=== PATIENT | female | born 1965 | race Caucasian/White ===

== ENCOUNTER 2017-08-15 06:03 | Emergency (ER) | payer BC, OTHER ==
[~2017-08-15 06:03] MED LIST: LORA-474 PO; REGL5TAB PO; ROSU10 PO
[2017-08-15 06:08] VITALS: BP 139/76; PULSE 86; RESP 16; TEMP 97.8; O2SAT 99
--- NOTE | 2017-08-15 06:35 | PD ---
HPI Chief Complaint: Abdominal Pain Time Seen by Provider: 06:28 Travel History International Travel<30 days: No Contact w/Intl Traveler<30days: No Traveled to known affect area: No History of Present Illness HPI Patient is a 52-year-old female who presents to emergency room after being seen and evaluated at [facility] emergency room for abdominal pain and bloating. Reports that over the past 2 months, she has been having increased abdominal pain and bloating. Patient reports that her clothes are too tight for her, reports that she has had multiple workups for this and no one can tell her why she is so bloated. Patient reports that she had a CT of her abdomen and pelvis as well as lab work obtained today at the [place] emergency room, reports that she was told to come to [facility] ER for a gastrointestinal consult. Patient denies any fevers or chills, denies any nausea or vomiting. Patient reports that she is menopausal and has been menopausal since the age of 45. Patient here for GI consult as well as for a "scope." [facility] Past Medical History Anxiety: Yes Depression: Yes Cancer: Yes (cervical) High Cholesterol: Yes Diminished Hearing: No Immunizations Current: Yes ?: Not Menopausal: Yes : 4 Para: 3 Ovarian Cysts: Yes (1 removed) Past Surgical History Section: Yes Other Surgery: Yes (leep surgery x4 cervical ca) Social History Alcohol Use: Yes (occ) Tobacco Use: Yes (E-CIG) Substance Use: No Allergies-Medications (Allergen,Severity, Reaction): Coded Allergies: penicillin G (Unverified Allergy, Mild, 08/15/17) Reported Meds & Prescriptions Reported Meds & Active Scripts Active Ativan (Lorazepam) 1 Mg Tab 1 Mg PO BID PRN Reglan (Metoclopramide HCl) 5 Mg Tab 5 Mg PO QID Crestor (Rosuvastatin Calcium) 10 Mg Tab 10 Mg PO DAILY Pt wants brand name Review of Systems General / Constitutional: No: Fever Eyes: No: Visual changes HENT: No: Headaches Cardiovascular: No: Chest Pain or Discomfort Respiratory: No: Shortness of Breath Gastrointestinal: Positive: Abdominal Pain Genitourinary: No: Dysuria Musculoskeletal: No: Pain Skin: No Rash Neurologic: No: Weakness Psychiatric: No: Depression Endocrine: No: Polydipsia Hematologic/Lymphatic: No: Easy Bruising Physical Exam Narrative GENERAL: No acute distress, nontoxic SKIN: Focused skin assessment warm/dry. HEAD: Atraumatic. Normocephalic. EYES: Pupils equal and round. No scleral icterus. No injection or drainage. ENT: No nasal bleeding or discharge. Mucous membranes pink and moist. NECK: Trachea midline. No JVD. CARDIOVASCULAR: Regular rate and rhythm. No murmur appreciated. RESPIRATORY: No accessory muscle use. Clear to auscultation. Breath sounds equal bilaterally. GASTROINTESTINAL: Abdomen soft, non-tender, nondistended. Hepatic and splenic margins not palpable. MUSCULOSKELETAL: No obvious deformities. No clubbing. No cyanosis. No edema. NEUROLOGICAL: Awake and alert. No obvious cranial nerve deficits. Motor grossly within normal limits. Normal speech. PSYCHIATRIC: Appropriate mood and affect; insight and judgment normal. Data Data Last Documented VS Vital Signs Date Time Temp Pulse Resp B/P (MAP) Pulse Ox O2 Delivery O2 Flow Rate FiO2 08/15/17 06:08 97.8 86 16 139/76 (97) 99 Room Air Orders Orders Mandatory Outpatient Referral (08/15/17 06:29) [facility] Medical Decision Making Medical Screen Exam Complete: Yes Emergency Medical Condition: Yes Medical Record Reviewed: Yes Interpretation(s) Vital Signs Date Time Temp Pulse Resp B/P (MAP) Pulse Ox O2 Delivery O2 Flow Rate FiO2 08/15/17 06:08 97.8 86 16 139/76 (97) 99 Room Air Differential Diagnosis Differential includes gastritis, gastroenteritis, liver cirrhosis, electrolyte abnormality Narrative Course 52-year-old female who returns to emergency room for a GI consult as well as for "scope." Patient was seen in the [place] ER earlier today and had a full workup including ct of her abdomen and pelvis. She was told to come to [facility] in [facility] for a gi consult and possible "scope." ER records including lab work and CT report was reviewed in detail. Vital Signs Date Time Temp Pulse Resp B/P (MAP) Pulse Ox O2 Delivery O2 Flow Rate FiO2 08/15/17 06:08 97.8 86 16 139/76 (97) 99 Room Air cbc from 08/15/17: WBC 10.3, hemoglobin 14.4, hematocrit 41.2, platelets 284 bmp from 08/14/17: Sodium 141, chloride 103, potassium 3.5, BUN 9, creatinine 0.70, glucose 127, AST 20, ALT 29, alkaline phosphatase 129, lipase 178 INR 0.9 UA: Rare bacteria, negative leuk esterase, negative nitrites CT of the abdomen and pelvis without contrast shows no acute abnormality demonstrated. I discussed with patient that she will need to see GI as outpatient and she does not suffer any emergent condition to have GI see her in the ER immediately. I discussed in detail that she will need to be seen by a heavy equipment sales associate and will need further workup for her abdominal bloating. A mandatory referral was placed for gastrointestinal doctor for patient. Vital signs are stable, and suffers no emergent condition at this time and will require follow-up as an outpatient. Signs and symptoms of acute abdomen reviewed with patient. She will return to the emergency room should she develop any of these symptoms. Diagnosis Primary Impression: Abdominal bloating Referrals: Nurys Ragsdale MD Patient Instructions: General Instructions Additional Instructions: Please follow up with heavy equipment sales associate as well as your primary care doctor as soon as possible Disposition: 01 DISCHARGE HOME Condition: Stable Idania Garcia DO Aug 15, 2017 06:35
== END 2017-08-15 06:51 | disposition home or self-care (01) ==
LOC: NEPC 06:03
DX: R14.0 Abdominal distension (gaseous) (principal)
CPT/HCPCS: 99281